=== PATIENT | male | born 1950 | race Caucasian/White ===

== ENCOUNTER 2017-07-20 15:30 | Emergency (ER) | payer MEDICARE, OTHER ==
[~2017-07-20] VITALS: Ht 175.3 cm; Wt 98.9 kg
[2017-07-20] MEDS ORDERED: diphenhdrAMINE HCL 25 MG CAP PO ONE ×3 (19:28→19:30)
[2017-07-20] MEDS ORDERED: methylPREDNISolone SOD SUCC 125 MG/2 ML VL IM ONE (19:30)
[2017-07-20 20:37] LABS: Albumin 4.1 g/dL (3.4-5.0); BUN/Creatinine Ratio 10.9; Basophils # (auto) 0 uL; CONDITION Y; Calcium 9.6 mg/dL (8.5-10.1); Eosinophils # (auto) 0 uL; Eosinophils % (auto) 0.1 % (0.0-7.0); Hematocrit 50.1 % (41.0-53.0); Hemoglobin 17.4 g/dL (13.5-17.5); Lymphocytes # (auto) 1.4 uL; Mean Corpuscular Hemoglobin 32.2 pg (28.0-32.0); Mean Corpuscular Hgb Conc. 34.6 g/dL (32.0-36.0); Mean Corpuscular Volume 92.9 fL (80.0-100.0); Mean Platelet Volume 8.2 fL (7.4-10.4); Monocytes # (auto) 1.3 uL; Monocytes % (auto) 6.6 % (0.0-12.0); Neutrophils # (auto) 17.4 uL; Neutrophils % (auto) 86.3 % (37.0-80.0); Platelet Count (auto) 394 10^3/uL (140-450); Potassium 4.6 mmol/L (3.5-5.1); Red Cell Distribution Width 14.1 % (11.6-16.0); Total Protein 7.7 g/dL (6.4-8.2); White Blood Cell 20.1 10^3/uL (4.4-10.8)
[2017-07-20] MEDS ORDERED: SODIUM CHLORIDE 0.9% 1,000 ML IV ONE (21:08)
[2017-07-20 21:53] LABS: Lactic Acid w/Reflex 4.4 mmol/L (0.4-2.0)
[2017-07-20 22:11] LABS: REFLEX LACTIC ACID YES OR NO YES
[2017-07-20 22:31] LABS: Urine Bilirubin Negative (Negative); Urine Blood Negative /uL (Negative); Urine Color Yellow (Yellow); Urine Glucose TRACE mg/dL (Normal); Urine Hyaline Cast MANY /lpf (0 - 2); Urine Ketone TRACE (Negative); Urine Mucus FEW (None Seen); Urine Nitrite Negative (Negative); Urine RBC 11 /hpf (0 - 3); Urine Squamous Epithelial Cell FEW /hpf (<5)
[2017-07-20] MEDS ORDERED: PIPERACILLIN-TAZOB 2.25GM 50 ML IV ONE (23:30)
[2017-07-20] MEDS ORDERED: LEVOFLOXACIN 500MG 100 ML IV ONE (23:30)
[2017-07-21 01:00] VITALS: BP 140/84
== END 2017-07-21 02:02 | disposition home or self-care (01) ==
LOC: ER 15:36
DX: N12 Tubulo-interstitial nephritis, not specified as acute or chronic (principal); E11.65 Type 2 diabetes mellitus with hyperglycemia; E78.5 Hyperlipidemia, unspecified; I10 Essential (primary) hypertension; Z88.0 Allergy status to penicillin; Z91.030 Bee allergy status; Z91.012 Allergy to eggs
CPT/HCPCS: 36415; 71020; 80053; 81001; 82962; 83605; 85025; 96361; 96365; 96372; 99285; J1956; J2930; J7030